=== PATIENT | female | born 1950 | race Asian ===

== ENCOUNTER 2019-12-11 19:38 | Inpatient (IN) | payer MEDICARE, MEDICAID ==
[~2019-12-11] VITALS: Ht 157.5 cm; Wt 50.3 kg
--- NOTE | 2019-12-11 20:00 | NUR ---
Dr. Mac at bedside for MSE.
--- NOTE | 2019-12-11 20:19 | NUR ---
Xray at bedside.
[2019-12-11 20:29] LABS: BASOPHILS # (AUTO) 0.1 K/uL (0.0-8.0); BASOPHILS % (AUTO) 0.9 % (0.0-2.0); EOSINOPHILS # (AUTO) 0.2 K/uL (0.0-0.7); EOSINOPHILS % (AUTO) 2.1 % (0.0-7.0); HEMATOCRIT 23.4 % (31.2-41.9); LYMPHOCYTES # (AUTO) 0.6 K/uL (20.0-40.0); LYMPHOCYTES % (AUTO) 8.5 % (20.5-51.5); MEAN CORPUSCULAR HEMOGLOBIN 31.7 uug (24.7-32.8); MEAN CORPUSCULAR HGB CONC 34 g/dL (32.3-35.6); MEAN CORPUSCULAR VOLUME 93.1 fL (75.5-95.3); MONOCYTES # (AUTO) 0.5 K/uL (2.0-10.0); MONOCYTES % (AUTO) 6.4 % (0.0-11.0); NEUTROPHILS # (AUTO) 6.2 K/uL (1.8-8.9); NEUTROPHILS % (AUTO) 82.1 % (38.5-71.5); PLATELET COUNT (AUTO) 272 K/uL (179-408); RED BLOOD CELL COUNT(AUTO) 2.51 MIL/uL (3.63-4.92); WHITE BLOOD COUNT (AUTO) 7.5 K/uL (3.8-11.8)
[2019-12-11 20:43] LABS: POTASSIUM 2.8 mmol/L (3.5-5.1)
[2019-12-11 20:44] LABS: CREATININE 12.3 mg/dL (0.6-1.3)
[2019-12-11 20:50] LABS: BILIRUBIN,DIRECT 0.1 mg/dL (0.0-0.2); BILIRUBIN,TOTAL 0.5 mg/dL (0.2-1.0)
--- NOTE | 2019-12-11 21:23 | NUR ---
Respiratory at bedside.
[2019-12-11 21:33] LABS: ABG BASE EXCESS -6.8 mmol/L; ABG PCO2 32.8 mmHg (35.0-45.0); ABG PH 7.357 (7.350-7.450); ABG PO2 100.5 mmHg (75.0-100.0); ABG SITE LEFT BRACHIAL; ABG TOTAL HEMOGLOBIN 7.6 G/dL (12.0-16.0); COHb 1.5 % (0.5-1.5); MetHb 0.7 % (0.0-1.5); O2Hb 94.6 % (94.0-97.0); VENT MODE Nasal Cannula
--- NOTE | 2019-12-11 21:49 | NUR ---
Called [facility] to page Dr. Ray Sexton.
--- NOTE | 2019-12-11 21:55 | NUR ---
Dr. Mac on panel call with Dr. Ray Sexton. Pt accepted for admission to [facility], diagnosis: CHF.
[2019-12-11 21:58] LABS: *BILIRUBIN,URIN NEGATIVE (NEGATIVE); *BLOOD, URINE 2+ (NEGATIVE); *CLARITY,URINE SLIGHTLY CLOUDY (CLEAR); *COLOR,URINE Other (YELLOW); *KETONES,URINE NEGATIVE (NEGATIVE); *UROBILINOGEN,URINE 0.2 E.U./dl (NORMAL); LEUKOCYTE ESTERASE ,URINE TRACE (NEGATIVE); NITRITE, URINE NEGATIVE (NEGATIVE); UGLUCOSE NEGATIVE (NEGATIVE)
[2019-12-11 22:14] LABS: BACTERIA,URINE MODERATE /HPF (NONE SEEN); SQUAMOUS EPITHELIAL CELL,UR FEW /HPF (NONE SEEN); YEAST,URINE NONE SEEN /HPF (NONE SEEN)
[2019-12-11 22:15] LABS: TRICHOMONAS,URINE NONE SEEN /HPF (NONE SEEN)
--- NOTE | 2019-12-11 22:20 | NUR ---
Report given to Sandy NIEVES Tele.
[2019-12-11] MEDS ORDERED: NITROGLYCERIN OINT 1 GM PACKET TP ONE ×2 (22:30→22:31)
[2019-12-11] MEDS ORDERED: FUROSEMIDE 40 MG/4 ML VIAL IV ONE (22:30)
[2019-12-11] MEDS ORDERED: FUROSEMIDE 40 MG/4 ML VIAL ONE (22:30)
[2019-12-11] MEDS ORDERED: POTASSIUM CHLORIDE 20 MEQ TAB.PRT.SR PO ONE (22:45)
[2019-12-11] MEDS ORDERED: TEMAZEPAM 15 MG CAPSULE PO PRN (22:45)
[2019-12-11] MEDS ORDERED: CEFTRIAXONE 1 G in IV DEXTROSE 5% 50 ML IV SCH (23:00)
[2019-12-11 23:30] VITALS: BP 153/59
[2019-12-11] MEDS: ACETAMINOPHEN 325 MG TABLET PO PRN (23:32)
--- NOTE | 2019-12-11 23:55 | NUR ---
Received patient from ER. Dx: CHF/PNA/UTI Patient is A/Ox2. No signs of acute distress noted. Complains of some abdominal discomfort and back pain, requesting Tylenol. Patient says she feels a little short of breath she is on 2L saturating at 96% said she does not want breathing treatment at this time. Skin assessment done, noted with small abrasion on the buttocks, picture taken and perma cath to left upper arm. Patient oriented to room and unit. Safety measures initiated. Bed is low and locked, call light within reach. Will continue to monitor.
[2019-12-11] MEDS ORDERED: CEFTRIAXONE 1 G VIAL ONE (23:56)
[2019-12-12] MEDS ORDERED: Z GUARD REMEDY PASTE 57 GM TUBE TOP PRN (03:15)
[2019-12-12] MEDS: ALBUTEROL SULFATE 2.5 MG/3 ML NEBU NEB PRN (03:37)
[2019-12-12 04:00] VITALS: BP 148/78
--- NOTE | 2019-12-12 06:11 | NUR ---
Patient slept intermittently throughout night. Patient complained of SOB, 98% on 2L NC, breathing treatment given, patient stated it helped. Vitals WNL. Rocephin given for UTI, tolerated well. Heplock on the right forearm is intact and patent. Safety measures given. Will endorse to next shift.
[2019-12-12 06:35] LABS: BASOPHILS # (AUTO) 0.1 K/uL (0.0-8.0); BASOPHILS % (AUTO) 1.4 % (0.0-2.0); EOSINOPHILS # (AUTO) 0.2 K/uL (0.0-0.7); EOSINOPHILS % (AUTO) 2.9 % (0.0-7.0); HEMATOCRIT 22.6 % (31.2-41.9); HEMOGLOBIN 7.6 g/dL (10.9-14.3); LYMPHOCYTES # (AUTO) 0.8 K/uL (20.0-40.0); LYMPHOCYTES % (AUTO) 13.6 % (20.5-51.5); MEAN CORPUSCULAR HEMOGLOBIN 31.5 uug (24.7-32.8); MEAN CORPUSCULAR HGB CONC 34 g/dL (32.3-35.6); MEAN CORPUSCULAR VOLUME 94.1 fL (75.5-95.3); MONOCYTES # (AUTO) 0.5 K/uL (2.0-10.0); MONOCYTES % (AUTO) 8.1 % (0.0-11.0); NEUTROPHILS # (AUTO) 4.5 K/uL (1.8-8.9); PLATELET COUNT (AUTO) 264 K/uL (179-408); WHITE BLOOD COUNT (AUTO) 6.1 K/uL (3.8-11.8)
[2019-12-12 06:56] LABS: BILIRUBIN,TOTAL 0.5 mg/dL (0.2-1.0); MAGNESIUM 1.9 mg/dL (1.8-2.4); POTASSIUM 3.2 mmol/L (3.5-5.1)
[2019-12-12 07:00] LABS: CREATININE 12.7 mg/dL (0.6-1.3); PHOSPHOROUS 8.8 mg/dL (2.5-4.9)
[2019-12-12 07:02] LABS: THYROID STIMULATING HORMONE 2.819 mIU/mL (0.358-3.740)
--- NOTE | 2019-12-12 07:10 | NUR ---
AWAKE ALERT AND ORIENTED X3, MOANING AND C/O GENERALIZED PAIN. REPOSITIONED FOR COMFORT. O2 AT 2L SATURATING 98%. SR ON MONITOR
--- NOTE | 2019-12-12 07:19 | NUR ---
Critical lab phos 8.8, BUN 85, Creat 12.[address] Bell and oncoming nurse.
[2019-12-12] MEDS: NITROGLYCERIN OINT 1 GM PACKET TP SCH ×2 (08:16→20:19)
[2019-12-12] MEDS: LEVOTHYROXINE SODIUM 88 MCG TABLET PO SCH (08:16)
[2019-12-12] MEDS: PANTOPRAZOLE SODIUM 40 MG TABLET.DR PO SCH ×2 (08:16→16:59)
[2019-12-12] MEDS: LABETALOL HCL 200 MG TABLET PO SCH ×2 (08:17→20:18)
--- NOTE | 2019-12-12 08:18 | NUR ---
SEEN BY DR WEBB FOR NEPHRO CONSULT AND SAID FOR HD TODAY.
[2019-12-12] MEDS: hydrALAZINE HCL 50 MG TABLET PO SCH ×3 (08:20→21:54)
[2019-12-12] MEDS: ACETAMINOPHEN 325 MG TABLET PO PRN ×3 (08:20→20:18)
[2019-12-12] MEDS ORDERED: PARICALCITOL 4 MCG PO SCH ×2 (09:00)
[2019-12-12] MEDS ORDERED: hydrALAZINE HCL 25 MG TABLET PO SCH (09:00)
[2019-12-12] MEDS ORDERED: LEVOTHYROXINE SODIUM 88 MCG TABLET PO SCH (09:00)
[2019-12-12 11:06] VITALS: BP 124/51
[2019-12-12] MEDS: DOCUSATE SODIUM 100 MG CAPSULE PO SCH ×2 (12:15→20:17)
--- NOTE | 2019-12-12 12:50 | NUR ---
STARTED HD AT BEDSIDE WILL OBSERVE
--- NOTE | 2019-12-12 14:19 | NUR ---
Patient complaining of mild pain, PRN medication given
--- NOTE | 2019-12-12 15:30 | NUR ---
HD COMPLETED PATIENT TOLERATED WELL. MEDICATED FOR ELEVATED BP DURING HD. LATEST BP 140/67
[2019-12-12 15:40] VITALS: BP_SYST 113; BP_SYST 224; BP_DIAS 105; BP_DIAS 78
[2019-12-12] MEDS: DONEPEZIL 10 MG TABLET PO SCH (20:18)
[2019-12-12] MEDS: ATORVASTATIN 10 MG TABLET PO SCH (20:18)
[2019-12-12 20:29] VITALS: BP 146/66
--- NOTE | 2019-12-12 20:46 | NUR ---
CLINICAL PHARMACY NOTE: VANCOMYCIN DOSING Request for vancomycin dosing on 69 y/o female 157.48cm 49.9kg empiric therapy HD patient Temp 98.2 BUN 85 Scr 12.7 WBC 6.1 also on Cefepime Give vancomycin 750mg ivpb x 1 will dose based on levels. Will continue to monitor
[2019-12-12] MEDS ORDERED: CEFEPIME HCL 1 G in IV DEXTROSE 5% 50 ML IV SCH ×2 (21:00→22:00)
[2019-12-12 21:41] VITALS: BP 146/64
[2019-12-12] MEDS ORDERED: VANCOMYCIN IV 750 MG in IV DEXTROSE 5% 250 ML IV ONE (22:00)
[2019-12-13] MEDS: ACETAMINOPHEN 325 MG TABLET PO PRN ×3 (04:44→18:04)
[2019-12-13 05:12] VITALS: BP 155/77
[2019-12-13] MEDS: PANTOPRAZOLE SODIUM 40 MG TABLET.DR PO SCH ×2 (06:49→16:35)
[2019-12-13] MEDS: LEVOTHYROXINE SODIUM 88 MCG TABLET PO SCH (06:49)
[2019-12-13] MEDS: hydrALAZINE HCL 50 MG TABLET PO SCH ×3 (06:51→21:08)
--- NOTE | 2019-12-13 07:30 | NUR ---
Received patient in Bed, awake and verbally responsive. No signs of distress noted. No SOB. No complain of Pain/discomfort. Kept clean and comfortable. Will continue to monitor.
[2019-12-13] MEDS: LABETALOL HCL 200 MG TABLET PO SCH ×2 (08:02→21:08)
[2019-12-13] MEDS: DOCUSATE SODIUM 100 MG CAPSULE PO SCH ×2 (08:02→21:08)
[2019-12-13] MEDS: NITROGLYCERIN OINT 1 GM PACKET TP SCH ×2 (08:03→21:09)
[2019-12-13 08:06] LABS: HEPATITIS B SURFACE AB Reactive (.); HEPATITIS B SURFACE AG Negative (Negative)
[2019-12-13 10:53] LABS: BASOPHILS # (AUTO) 0.1 K/uL (0.0-8.0); EOSINOPHILS # (AUTO) 0.2 K/uL (0.0-0.7); EOSINOPHILS % (AUTO) 2.9 % (0.0-7.0); HEMOGLOBIN 7.7 g/dL (10.9-14.3); LYMPHOCYTES # (AUTO) 0.8 K/uL (20.0-40.0); LYMPHOCYTES % (AUTO) 12.5 % (20.5-51.5); MEAN CORPUSCULAR HEMOGLOBIN 31.7 uug (24.7-32.8); MEAN CORPUSCULAR HGB CONC 33 g/dL (32.3-35.6); MEAN CORPUSCULAR VOLUME 94.9 fL (75.5-95.3); MONOCYTES # (AUTO) 0.6 K/uL (2.0-10.0); NEUTROPHILS # (AUTO) 4.6 K/uL (1.8-8.9); NEUTROPHILS % (AUTO) 74.6 % (38.5-71.5); PLATELET COUNT (AUTO) 234 K/uL (179-408); POTASSIUM 3.4 mmol/L (3.5-5.1); WHITE BLOOD COUNT (AUTO) 6.2 K/uL (3.8-11.8)
[2019-12-13 11:12] LABS: RED BLOOD CELL COUNT(AUTO) 2.42 MIL/uL (3.63-4.92)
[2019-12-13 11:15] LABS: *OCCULT BLOOD STOOL NEGATIVE (NEGATIVE)
--- NOTE | 2019-12-13 11:32 | NUR ---
CLINICAL PHARMACY NOTE: VANCOMYCIN DOSING To continue vancomycin dosing on 69 y/o female 157.48cm 49.9kg empiric therapy. On HD height 157cm weight 50kg HD patient Temp 97.4 BUN 85 (2) Scr 12.7 (2) WBC 6.1 (2) also on Cefepime Assessment/Plan Last vanco 750mg ivpb x 1 given yesterday at 2200. As no HD scheduled for today, no dose will be given. Will continue to follow HD schedule and dose per pre-HD levels when indicated. Will follow
[2019-12-13 11:53] VITALS: BP 144/93
[2019-12-13 16:00] VITALS: BP 175/76
--- NOTE | 2019-12-13 18:18 | NUR ---
Patient in bed, awake and verbally responsive with episode of Forgetfulness. No signs of distress noted. No SOB. On Oxygen at 2LPM via Nasal canula. Tylenol 650mg give x 2 for generalized Body Pain. Kept clean and comfortable. All due medications given as ordered. Will endorse to Oncoming Nurse.
--- NOTE | 2019-12-13 19:30 | NUR ---
Received patient awake and alert in bed, daughter at bedside. No signs of acute distress noted. No complaints of pain, complains of SOB. Patient is 100% on 2L NC. Heplock on the right forearm is intact and patent. Safety measures initiated. Bed is low and locked, call light within reach. Will continue to monitor.
[2019-12-13] MEDS: DONEPEZIL 10 MG TABLET PO SCH (21:08)
[2019-12-13] MEDS: ATORVASTATIN 10 MG TABLET PO SCH (21:08)
[2019-12-13 21:30] VITALS: BP 171/84
[2019-12-13] MEDS: CEFEPIME HCL 0.5 G in IV DEXTROSE 5% 50 ML IV SCH (22:33)
[2019-12-13] MEDS: MORPHINE SULFATE 2 MG/1 ML DISP.SYRIN IV PRN (22:45)
[2019-12-14] MEDS: ACETAMINOPHEN 325 MG TABLET PO PRN ×4 (00:09→22:29)
[2019-12-14] MEDS ORDERED: CLONIDINE HCL 0.2 MG TABLET PO ONE (00:30)
[2019-12-14] MEDS: ONDANSETRON 4 MG/2 ML VIAL IV PRN (00:39)
[2019-12-14 00:57] VITALS: BP 174/82
--- NOTE | 2019-12-14 00:59 | NUR ---
Took BP twice SBP >170 spoke to on-call Dr. Gupta and he ordered Catapres 0.2mg once and Catapres 0.1mg Q6H PRN for SBP>160. Will continue to monitor.
[2019-12-14 04:51] VITALS: BP 164/76
[2019-12-14 05:55] LABS: BASOPHILS # (AUTO) 0.1 K/uL (0.0-8.0); BASOPHILS % (AUTO) 1.6 % (0.0-2.0); EOSINOPHILS # (AUTO) 0.1 K/uL (0.0-0.7); EOSINOPHILS % (AUTO) 2.6 % (0.0-7.0); HEMATOCRIT 22.4 % (31.2-41.9); HEMOGLOBIN 7.5 g/dL (10.9-14.3); LYMPHOCYTES # (AUTO) 0.9 K/uL (20.0-40.0); LYMPHOCYTES % (AUTO) 15.9 % (20.5-51.5); MEAN CORPUSCULAR HEMOGLOBIN 32.2 uug (24.7-32.8); MEAN CORPUSCULAR HGB CONC 34 g/dL (32.3-35.6); MEAN CORPUSCULAR VOLUME 95.5 fL (75.5-95.3); MONOCYTES # (AUTO) 0.4 K/uL (2.0-10.0); MONOCYTES % (AUTO) 6.5 % (0.0-11.0); NEUTROPHILS # (AUTO) 4.1 K/uL (1.8-8.9); NEUTROPHILS % (AUTO) 73.4 % (38.5-71.5); PLATELET COUNT (AUTO) 218 K/uL (179-408); WHITE BLOOD COUNT (AUTO) 5.7 K/uL (3.8-11.8)
[2019-12-14 06:09] LABS: RED BLOOD CELL COUNT(AUTO) 2.34 MIL/uL (3.63-4.92)
[2019-12-14] MEDS: PANTOPRAZOLE SODIUM 40 MG TABLET.DR PO SCH ×2 (06:17→16:09)
[2019-12-14] MEDS: LEVOTHYROXINE SODIUM 88 MCG TABLET PO SCH (06:17)
[2019-12-14] MEDS: hydrALAZINE HCL 50 MG TABLET PO SCH ×3 (06:18→22:05)
[2019-12-14 06:35] LABS: POTASSIUM 3.5 mmol/L (3.5-5.1)
[2019-12-14] MEDS: NITROGLYCERIN OINT 1 GM PACKET TP SCH ×2 (08:01→20:12)
[2019-12-14] MEDS: DOCUSATE SODIUM 100 MG CAPSULE PO SCH ×2 (08:01→20:12)
[2019-12-14] MEDS: LABETALOL HCL 200 MG TABLET PO SCH ×2 (08:01→20:12)
[2019-12-14] MEDS: SEVELAMER CARBONATE 800 MG TABLET PO SCH ×2 (11:35→17:15)
[2019-12-14 11:40] VITALS: BP 140/70
--- NOTE | 2019-12-14 13:55 | NUR ---
CLINICAL PHARMACY NOTE: VANCOMYCIN DOSING To continue vancomycin dosing on 69 y/o female 157.48cm 49.9kg for HCAP. On HD height 157cm weight 50kg HD patient Temp 97.4 BUN 51 Scr 9.0 WBC 5.7 also on Cefepime Vancomycin pre-HD level today(12/14) on am labs: 11.7 Assessment/Plan Since patient is on dialysis today, will give Vancomycin 750mg IV after dialysis (scheduled at 1600 per nurse request). Will continue to dose by pre-HD random level. Will follow daily for dialysis schedule.
[2019-12-14] MEDS: MIRALAX 17 GM POWD.PACK PO PRN (15:33)
[2019-12-14 16:00] VITALS: BP 155/58
[2019-12-14] MEDS ORDERED: VANCOMYCIN IV 750 MG in IV DEXTROSE 5% 250 ML IV ONE (16:00)
[2019-12-14] MEDS: DONEPEZIL 10 MG TABLET PO SCH (20:11)
[2019-12-14] MEDS: TEMAZEPAM 7.5 MG CAPSULE PO PRN (20:11)
[2019-12-14] MEDS: ATORVASTATIN 10 MG TABLET PO SCH (20:11)
[2019-12-14 20:19] VITALS: BP 139/71
[2019-12-14] MEDS: CEFEPIME HCL 0.5 G in IV DEXTROSE 5% 50 ML IV SCH (20:42)
[2019-12-15 05:29] VITALS: BP 148/62
[2019-12-15] MEDS: LEVOTHYROXINE SODIUM 88 MCG TABLET PO SCH (06:07)
[2019-12-15] MEDS: PANTOPRAZOLE SODIUM 40 MG TABLET.DR PO SCH ×2 (06:07→18:04)
[2019-12-15] MEDS: hydrALAZINE HCL 50 MG TABLET PO SCH ×3 (06:08→21:17)
[2019-12-15 06:36] LABS: BASOPHILS # (AUTO) 0.1 K/uL (0.0-8.0); BASOPHILS % (AUTO) 1.2 % (0.0-2.0); EOSINOPHILS # (AUTO) 0.3 K/uL (0.0-0.7); LYMPHOCYTES # (AUTO) 0.9 K/uL (20.0-40.0); MEAN CORPUSCULAR HEMOGLOBIN 31.7 uug (24.7-32.8); MEAN CORPUSCULAR HGB CONC 33 g/dL (32.3-35.6); MEAN CORPUSCULAR VOLUME 96.4 fL (75.5-95.3); MONOCYTES # (AUTO) 0.6 K/uL (2.0-10.0); MONOCYTES % (AUTO) 8.2 % (0.0-11.0); PLATELET COUNT (AUTO) 222 K/uL (179-408)
[2019-12-15 06:46] LABS: EOSINOPHILS % (AUTO) 3.6 % (0.0-7.0); HEMATOCRIT 22.7 % (31.2-41.9); HEMOGLOBIN 7.5 g/dL (10.9-14.3); LYMPHOCYTES % (AUTO) 12.3 % (20.5-51.5); NEUTROPHILS # (AUTO) 5.2 K/uL (1.8-8.9); NEUTROPHILS % (AUTO) 74.7 % (38.5-71.5); WHITE BLOOD COUNT (AUTO) 6.9 K/uL (3.8-11.8)
[2019-12-15 06:47] LABS: CREATININE 5.9 mg/dL (0.6-1.3); RED BLOOD CELL COUNT(AUTO) 2.36 MIL/uL (3.63-4.92)
[2019-12-15] MEDS: ACETAMINOPHEN 325 MG TABLET PO PRN ×3 (07:58→20:27)
[2019-12-15] MEDS: DOCUSATE SODIUM 100 MG CAPSULE PO SCH ×2 (07:59→20:20)
[2019-12-15] MEDS: LABETALOL HCL 200 MG TABLET PO SCH ×2 (07:59→20:20)
[2019-12-15] MEDS: SEVELAMER CARBONATE 800 MG TABLET PO SCH ×3 (07:59→18:04)
[2019-12-15] MEDS: NITROGLYCERIN OINT 1 GM PACKET TP SCH ×2 (08:00→20:21)
--- NOTE | 2019-12-15 08:00 | NUR ---
Received pt. resting in bed alert oriented to self. Pt. is confused. Pt. on 2 L NC. Pt. has IV in R hand 20 gauge intact patent saline lock. Pt. has L UA AV shunt for dialysis. Pt. states she has headache and stomach ache and requesting tylenol. Will provide pt. with tylenol. Safety measures in place. Call light within reach. Will continue to monitor pt.
[2019-12-15] MEDS: ALBUTEROL SULFATE 2.5 MG/3 ML NEBU NEB PRN ×2 (08:14→12:19)
--- NOTE | 2019-12-15 09:49 | NUR ---
CLINICAL PHARMACY NOTE: VANCOMYCIN DOSING S: To continue vancomycin dosing on 69 y/o female dialysis patient for HCAP O: height 157cm weight 50kg Temp 98.1 BUN 28 Scr 5.9 (on HD) WBC 6.9 Vancomycin pre-HD level today(12/14) on am labs: 11.7 Assessment/Plan No HD has been scheduled for today, thus, no vanco dose shall be due today. Will continue to dose by pre-HD random level. Will follow daily for dialysis schedule.
[2019-12-15 11:44] VITALS: BP 153/61
[2019-12-15] MEDS ORDERED: BISACODYL 10 MG SUPP.RECT RC ONE (11:45)
--- NOTE | 2019-12-15 16:00 | NUR ---
Pt. is getting dialysis at moment. Will hold BP medication until after dialysis.
[2019-12-15 16:10] VITALS: BP 176/73
[2019-12-15 20:00] VITALS: BP 156/72
[2019-12-15] MEDS: CEFEPIME HCL 0.5 G in IV DEXTROSE 5% 50 ML IV SCH (20:19)
[2019-12-15] MEDS: DONEPEZIL 10 MG TABLET PO SCH (20:20)
[2019-12-15] MEDS: ATORVASTATIN 10 MG TABLET PO SCH (20:20)
[2019-12-15] MEDS: TEMAZEPAM 7.5 MG CAPSULE PO PRN (21:17)
[2019-12-16] VITALS: BP 149/65
[2019-12-16] MEDS: ACETAMINOPHEN 325 MG TABLET PO PRN ×4 (01:57→21:59)
[2019-12-16] MEDS: MORPHINE SULFATE 2 MG/1 ML DISP.SYRIN IV PRN (03:19)
[2019-12-16 05:49] VITALS: BP 163/68
[2019-12-16] MEDS: hydrALAZINE HCL 50 MG TABLET PO SCH ×3 (05:51→21:45)
[2019-12-16] MEDS: LEVOTHYROXINE SODIUM 88 MCG TABLET PO SCH (05:51)
[2019-12-16] MEDS: PANTOPRAZOLE SODIUM 40 MG TABLET.DR PO SCH ×2 (05:51→16:54)
[2019-12-16 06:31] LABS: BASOPHILS # (AUTO) 0.1 K/uL (0.0-8.0); BASOPHILS % (AUTO) 1.1 % (0.0-2.0); EOSINOPHILS # (AUTO) 0.3 K/uL (0.0-0.7); EOSINOPHILS % (AUTO) 3.6 % (0.0-7.0); HEMATOCRIT 24.4 % (31.2-41.9); HEMOGLOBIN 8.1 g/dL (10.9-14.3); LYMPHOCYTES % (AUTO) 11.7 % (20.5-51.5); MEAN CORPUSCULAR HEMOGLOBIN 32.1 uug (24.7-32.8); MEAN CORPUSCULAR HGB CONC 33 g/dL (32.3-35.6); MEAN CORPUSCULAR VOLUME 96.8 fL (75.5-95.3); MONOCYTES # (AUTO) 0.5 K/uL (2.0-10.0); MONOCYTES % (AUTO) 5.6 % (0.0-11.0); NEUTROPHILS # (AUTO) 6.4 K/uL (1.8-8.9); PLATELET COUNT (AUTO) 219 K/uL (179-408); RED BLOOD CELL COUNT(AUTO) 2.52 MIL/uL (3.63-4.92); WHITE BLOOD COUNT (AUTO) 8.2 K/uL (3.8-11.8)
[2019-12-16 06:39] LABS: CREATININE 6.9 mg/dL (0.6-1.3); POTASSIUM 3.8 mmol/L (3.5-5.1)
--- NOTE | 2019-12-16 07:38 | NUR ---
Pt rested well in between care; incontinence care done; pain addressed; safety maintained; HD output last night was 2000ml; continue to monitor; continue plan of care
--- NOTE | 2019-12-16 08:00 | NUR ---
AWAKE, ALERT BUT WITH PERIODS OF FORGETFULNESS AND CONFUSION. ASKING FOR TYLENOL EVERY 30 MIN TO 1 HR, REORIENTATION DONE. SR ON MONITOR. IV INFILTRATED. VERY HARD STICK AND WILL FOLLOW-UP ORDERS. QUESTIONABLE MIDLINE
[2019-12-16] MEDS: DOCUSATE SODIUM 100 MG CAPSULE PO SCH ×2 (09:03→20:24)
[2019-12-16] MEDS: LABETALOL HCL 200 MG TABLET PO SCH ×2 (09:04→20:24)
[2019-12-16] MEDS: SEVELAMER CARBONATE 800 MG TABLET PO SCH ×3 (09:05→16:54)
[2019-12-16] MEDS: NITROGLYCERIN OINT 1 GM PACKET TP SCH ×2 (09:06→20:24)
[2019-12-16 11:58] VITALS: BP 161/72
--- NOTE | 2019-12-16 12:00 | NUR ---
SEEN BY DR. CABRERA FOR FOLLOW-UP. SCHEDULE FOR HD TODAY.
[2019-12-16 15:57] VITALS: BP 155/70
--- NOTE | 2019-12-16 16:00 | NUR ---
HD STARTED AT BEDSIDE. CLOSELY MONITORED.
--- NOTE | 2019-12-16 19:30 | NUR ---
RECEIVED PT IN NO ACUTE DISTRESS. PT FORGETFUL NEEDS REORIENTATION. PT ASKING FOR TYLENOL. SAFETY AND COMFORT PROVIDED. WILL CONTINUE TO MONITOR.
[2019-12-16 20:00] VITALS: BP 182/74
[2019-12-16] MEDS: DONEPEZIL 10 MG TABLET PO SCH (20:23)
[2019-12-16] MEDS: ATORVASTATIN 10 MG TABLET PO SCH (20:24)
[2019-12-16] MEDS: CEFEPIME HCL 0.5 G in IV DEXTROSE 5% 50 ML IV SCH (20:30)
[2019-12-16] MEDS: CLONIDINE HCL 0.1 MG TABLET PO PRN (21:58)
[2019-12-16] MEDS: TEMAZEPAM 7.5 MG CAPSULE PO PRN (22:30)
[2019-12-17] VITALS: BP 122/59
[2019-12-17 03:52] VITALS: BP 163/78
[2019-12-17] MEDS: hydrALAZINE HCL 50 MG TABLET PO SCH ×3 (05:15→21:04)
--- NOTE | 2019-12-17 05:39 | NUR ---
PT SLEPT INTERMITTENTLY. PT IN NO ACUTE DISTRESS. IV INTACT. PRESCRIBED MEDICATION GIVEN AND PT TOLERATED IT WELL. PT GIVEN CATAPRESS MEDICATION PRN. PT TOLERATED IT WELL. SAFETY AND COMFORT PROVIDED. WILL ENDORSE TO INCOMING NURSE FOR CONTINUITY OF CARE.
[2019-12-17 06:07] LABS: CREATININE 5.5 mg/dL (0.6-1.3); PHOSPHOROUS 4.3 mg/dL (2.5-4.9); POTASSIUM 3.7 mmol/L (3.5-5.1)
[2019-12-17 06:17] LABS: BASOPHILS # (AUTO) 0.1 K/uL (0.0-8.0); BASOPHILS % (AUTO) 1.1 % (0.0-2.0); EOSINOPHILS # (AUTO) 0.3 K/uL (0.0-0.7); EOSINOPHILS % (AUTO) 4.7 % (0.0-7.0); HEMATOCRIT 23.5 % (31.2-41.9); HEMOGLOBIN 7.7 g/dL (10.9-14.3); LYMPHOCYTES # (AUTO) 0.7 K/uL (20.0-40.0); LYMPHOCYTES % (AUTO) 10.9 % (20.5-51.5); MEAN CORPUSCULAR HEMOGLOBIN 31.7 uug (24.7-32.8); MEAN CORPUSCULAR HGB CONC 33 g/dL (32.3-35.6); MEAN CORPUSCULAR VOLUME 96.3 fL (75.5-95.3); MONOCYTES # (AUTO) 0.5 K/uL (2.0-10.0); NEUTROPHILS # (AUTO) 4.7 K/uL (1.8-8.9); NEUTROPHILS % (AUTO) 75.3 % (38.5-71.5); PLATELET COUNT (AUTO) 228 K/uL (179-408); WHITE BLOOD COUNT (AUTO) 6.2 K/uL (3.8-11.8)
[2019-12-17] MEDS: LEVOTHYROXINE SODIUM 88 MCG TABLET PO SCH (06:18)
[2019-12-17] MEDS: PANTOPRAZOLE SODIUM 40 MG TABLET.DR PO SCH ×2 (06:19→17:51)
[2019-12-17] MEDS: CLONIDINE HCL 0.1 MG TABLET PO PRN (06:19)
[2019-12-17] MEDS: ACETAMINOPHEN 325 MG TABLET PO PRN ×2 (06:19→21:03)
--- NOTE | 2019-12-17 06:25 | NUR ---
PT GIVEN 2158h CATAPRES FOR 160/63 AND 0619H 168/68 BLOOD PRESSURE. PT ASYMPTOMATIC AND IN NO ACUTE DISTRESS. WILL CONTINUE TO MONITOR. CHARGE NURSE AWARE.
[2019-12-17 06:37] LABS: RED BLOOD CELL COUNT(AUTO) 2.44 MIL/uL (3.63-4.92)
--- NOTE | 2019-12-17 08:00 | NUR ---
AWAKE ALERT AND VERBALLY RESPONSIVE BUT VERY FORGETFUL, NEEDS ATTENDED. SR ON MONITOR
[2019-12-17] MEDS: DOCUSATE SODIUM 100 MG CAPSULE PO SCH ×2 (08:21→21:03)
[2019-12-17] MEDS: SEVELAMER CARBONATE 800 MG TABLET PO SCH ×3 (08:21→17:51)
[2019-12-17] MEDS: MIRALAX 17 GM POWD.PACK PO PRN (08:22)
[2019-12-17] MEDS: NITROGLYCERIN OINT 1 GM PACKET TP SCH ×2 (08:22→21:04)
[2019-12-17] MEDS: LABETALOL HCL 200 MG TABLET PO SCH ×2 (08:22→21:04)
[2019-12-17 11:28] VITALS: BP 150/50
--- NOTE | 2019-12-17 12:00 | NUR ---
SEEN BY PHYSICAL THERAPY FOR FOLLOW-UP SEE NOTES
[2019-12-17 15:16] VITALS: BP 121/99
--- NOTE | 2019-12-17 16:16 | NUR ---
CONTINUE CURRENT TX PLAN SEEN BY DR HOBSON PLAN HD IN AM
--- NOTE | 2019-12-17 19:30 | NUR ---
RECEIVED PT AWAKE, ALERT AND ORIENTEDX2. PT NEEDS REORIENTATION. PT IN NO ACUTE DISTRESS. IV INTACT. SAFETY AND COMFORT PROVIDED. WILL CONTINUE TO MONITOR.
[2019-12-17 20:00] VITALS: BP 155/74
[2019-12-17] MEDS: DONEPEZIL 10 MG TABLET PO SCH (21:03)
[2019-12-17] MEDS: ATORVASTATIN 10 MG TABLET PO SCH (21:03)
[2019-12-17] MEDS: CEFEPIME HCL 0.5 G in IV DEXTROSE 5% 50 ML IV SCH (21:05)
[2019-12-17] MEDS: TEMAZEPAM 7.5 MG CAPSULE PO PRN (22:06)
[2019-12-18] VITALS (7 sets, daily range): BP systolic 112–185; BP diastolic 49–87
[2019-12-18] MEDS: ACETAMINOPHEN 325 MG TABLET PO PRN ×3 (03:24→19:35)
[2019-12-18] MEDS: hydrALAZINE HCL 50 MG TABLET PO SCH ×3 (06:13→22:13)
[2019-12-18] MEDS: LEVOTHYROXINE SODIUM 88 MCG TABLET PO SCH (06:13)
[2019-12-18] MEDS: PANTOPRAZOLE SODIUM 40 MG TABLET.DR PO SCH ×2 (06:13→18:02)
[2019-12-18 06:24] LABS: BASOPHILS # (AUTO) 0.1 K/uL (0.0-8.0); BASOPHILS % (AUTO) 1.2 % (0.0-2.0); EOSINOPHILS # (AUTO) 0.2 K/uL (0.0-0.7); EOSINOPHILS % (AUTO) 4.1 % (0.0-7.0); HEMATOCRIT 22.2 % (31.2-41.9); LYMPHOCYTES # (AUTO) 0.9 K/uL (20.0-40.0); LYMPHOCYTES % (AUTO) 14.6 % (20.5-51.5); MEAN CORPUSCULAR HEMOGLOBIN 31.9 uug (24.7-32.8); MEAN CORPUSCULAR HGB CONC 33 g/dL (32.3-35.6); MEAN CORPUSCULAR VOLUME 96.9 fL (75.5-95.3); MONOCYTES # (AUTO) 0.5 K/uL (2.0-10.0); MONOCYTES % (AUTO) 8.2 % (0.0-11.0); NEUTROPHILS # (AUTO) 4.4 K/uL (1.8-8.9); NEUTROPHILS % (AUTO) 71.9 % (38.5-71.5); PLATELET COUNT (AUTO) 199 K/uL (179-408); WHITE BLOOD COUNT (AUTO) 6.1 K/uL (3.8-11.8)
[2019-12-18 06:36] LABS: HEMOGLOBIN 7.3 g/dL (10.9-14.3); RED BLOOD CELL COUNT(AUTO) 2.29 MIL/uL (3.63-4.92)
[2019-12-18 06:40] LABS: CREATININE 6.4 mg/dL (0.6-1.3); PHOSPHOROUS 5.1 mg/dL (2.5-4.9); POTASSIUM 3.6 mmol/L (3.5-5.1)
--- NOTE | 2019-12-18 06:46 | NUR ---
PT SLEPT INTERMITTENTLY. PRESCRIBED MEDICATION GIVEN AND PT TOLERATED IT WELL. SAFETY AND COMFORT PROVIDED. PT SCREAMING FOR TYLENOL. ALL MEDS ARE MET, WILL ENDORSE TO INCOMING NURSE FOR CONTINUITY OF CARE.
[2019-12-18 08:09] LABS: HEPATITIS A AB, TOTAL Negative (Negative); HEPATITIS B SURFACE AB Reactive (.); HEPATITIS B SURFACE AG Negative (Negative)
[2019-12-18] MEDS: SEVELAMER CARBONATE 800 MG TABLET PO SCH ×3 (08:21→18:02)
[2019-12-18] MEDS: DOCUSATE SODIUM 100 MG CAPSULE PO SCH ×2 (08:21→21:26)
[2019-12-18] MEDS: NITROGLYCERIN OINT 1 GM PACKET TP SCH ×2 (08:23→21:27)
[2019-12-18] MEDS: LABETALOL HCL 200 MG TABLET PO SCH ×2 (08:23→21:27)
[2019-12-18] MEDS: CLONIDINE HCL 0.1 MG TABLET PO PRN (08:25)
[2019-12-18] MEDS: ALBUTEROL SULFATE 2.5 MG/3 ML NEBU NEB PRN (08:39)
--- NOTE | 2019-12-18 08:39 | NUR ---
Received pt in bed, A/OX1-2, forgetful and agitated. Noted with elevated BP: 161/79, All due AM meds given with clonidine. Called RT for BTX for c/o SOB, pt. on 2 LPM via NC with SpO2 of 100%. On monitor: NSR. AVF +thrill and Bruit. LUISA midline patent and intact. No new skin condition, skin care rendered. Safety measures in place. Call light and all frequently used items within pt. reach.
--- NOTE | 2019-12-18 13:03 | NUR ---
TYLENOL PRN GIVEN. PT'S PAIN LEVEL 4. GENERALIZED.
[2019-12-18] MEDS: MORPHINE SULFATE 2 MG/1 ML DISP.SYRIN IV PRN ×2 (13:33→21:29)
--- NOTE | 2019-12-18 18:56 | NUR ---
EOS: All due medications given as ordered. Skin care rendered. Relayed lab result and CXR result to Dr. Wild Jacobsen. Notified attending of pt. restlessness and agitation, NNO. Pt. received dialysis treatment today, no output per dialysis nurse. No bleeding on KATRIN AVF site post dialysis. Kept pt. clean and dry. Safety measures in place. Call light and all frequently used items within pt. reach. Will endorse to oncoming shift accordingly.
--- NOTE | 2019-12-18 20:00 | NUR ---
PATIENT RECEIVED INTO CARE, SITTING UP IN BED, ALERT/ORIENTED X3 WITH COMPLAINTS OF HEADACHE/PAIN AND REQUESTING TYLENOL. NURSE EXPLAINED TYLENOL GIVEN AT 1936H AND CAN GIVE AGAIN AT 0136H. ALL SAFETY AND FALL PRECAUTION MEASURES ARE IN PLACE. CALL LIGHT AND PERSONAL ITEMS ARE WITHIN REACH AT ALL TIMES. WILL CONTINUE TO MONITOR AND ASSESS.
[2019-12-18] MEDS: ATORVASTATIN 10 MG TABLET PO SCH (21:26)
[2019-12-18] MEDS: CEFEPIME HCL 0.5 G in IV DEXTROSE 5% 50 ML IV SCH (21:26)
[2019-12-18] MEDS: DONEPEZIL 10 MG TABLET PO SCH (21:27)
[2019-12-18] MEDS: ONDANSETRON 4 MG/2 ML VIAL IV PRN (21:33)
--- NOTE | 2019-12-18 23:31 | NUR ---
BLOOD TRANSFUSION STARTED. PATIENT AFEBRILE. VS: T 98.3 HR 73 RR V20 BP 166/63 WILL CONTINUE TO MONITOR AND ASSESS.
--- NOTE | 2019-12-18 23:39 | NUR ---
VS AT 15 MIN: AFEBRILE 98.2 BP 185/80 HR 68 RR 20. SLOWED TRANSFUSION RATE FROM 110mL/HR TO 75mL/HR. WILL CONTINUE TO MONITOR AND ASSESS IN 15 MINUTES
[2019-12-19] VITALS (12 sets, daily range): BP systolic 139–180; BP diastolic 45–84
--- NOTE | 2019-12-19 00:02 | NUR ---
BLOOD TRANSFUSION VS T 98.1 BP 161/45 HR 75 RR 20. INCREASED FLOW RATE TO 90mL/HR. WILL CONTINUE TO MONITOR AND ASSESS IN 15 MIN.
--- NOTE | 2019-12-19 00:15 | NUR ---
BLOOD TRANSFUSION VS: T 98.1 BP 171/84 HR 74 RR 18. SLOWED TRANSFUSION BACK TO 75mL/HR DUE TO INCREASED BP. WILL CONTINUE TO MONITOR AND ASSESS IN 15 MIN.
--- NOTE | 2019-12-19 00:34 | NUR ---
BLOOD TRANSFUSION VS: T 98.2 BP 139/54 HR 75 RR 19; Addendum: 12/19/19 at 0035 by AMY TORRE RN INCREASED RATE TO 90mL/hr. WILL CONTINUE TO MONITOR AND ASSESS IN 15 MINUTES.
--- NOTE | 2019-12-19 00:45 | NUR ---
BLOOD TRANSFUSION VS: T 98.2 BP 171/76 HR 76 R 20. SLOWED TRANSFUSION TO 75mL/HR. WILL CONTINUE TO MONITOR AND ASSESS IN 15 MINUTES.
--- NOTE | 2019-12-19 01:00 | NUR ---
BLOOD TRANSFUSION VS: T 98.2 BP 178/56 HR 74 RR 19 AT 75mL/HR. PROVIDED PATIENT WITH PRESCRIBED CATAPRES 0.1mg. WILL CONTINUE TO MONITOR AND ASSESS IN 15 MIN.
[2019-12-19] MEDS: CLONIDINE HCL 0.1 MG TABLET PO PRN ×2 (01:06→16:07)
[2019-12-19] MEDS: ACETAMINOPHEN 325 MG TABLET PO PRN ×3 (01:11→20:47)
--- NOTE | 2019-12-19 01:44 | NUR ---
RECHECK OF PATIENT'S BP FOLLOWING ADMINISTRATION OF PO 0.1mg CATAPRES IS BP 172/82 HR 73. WILL NOTIFY HARINDER BUSH FOR FURTHER INSTRUCTIONS.
--- NOTE | 2019-12-19 01:45 | NUR ---
NOTIFIED [employer] SALES SUPERVISOR KIMBERLI OF ELEVATED BP DESPITE GIVING PRN CATAPRES 0.1MG. [employer] SALES SUPERVISOR ORDER PRN HYDRALAZINE 25MG FOR SBP >160.
[2019-12-19] MEDS: hydrALAZINE HCL 25 MG TABLET PO PRN ×3 (02:25→18:05)
--- NOTE | 2019-12-19 02:46 | NUR ---
BLOOD TRANSFUSION COMPLETE. FINAL VS T 98.2 BP 161/68 HR 62 RR 20. NO ADVERSE SIDE EFFECTS VERBALIZED BY PATIENT OR NOTED/OBSERVED BY NURSE. WILL CONTINUE TO MONITOR AND ASSESS.
[2019-12-19 05:19] LABS: BASOPHILS # (AUTO) 0.1 K/uL (0.0-8.0); BASOPHILS % (AUTO) 1.2 % (0.0-2.0); EOSINOPHILS # (AUTO) 0.2 K/uL (0.0-0.7); EOSINOPHILS % (AUTO) 3.2 % (0.0-7.0); HEMATOCRIT 26.4 % (31.2-41.9); HEMOGLOBIN 8.8 g/dL (10.9-14.3); LYMPHOCYTES # (AUTO) 0.7 K/uL (20.0-40.0); LYMPHOCYTES % (AUTO) 11.5 % (20.5-51.5); MEAN CORPUSCULAR HEMOGLOBIN 31.3 uug (24.7-32.8); MEAN CORPUSCULAR HGB CONC 33 g/dL (32.3-35.6); MEAN CORPUSCULAR VOLUME 94.3 fL (75.5-95.3); MONOCYTES # (AUTO) 0.6 K/uL (2.0-10.0); NEUTROPHILS # (AUTO) 4.9 K/uL (1.8-8.9); NEUTROPHILS % (AUTO) 75.1 % (38.5-71.5); PLATELET COUNT (AUTO) 184 K/uL (179-408); WHITE BLOOD COUNT (AUTO) 6.5 K/uL (3.8-11.8)
[2019-12-19 05:30] LABS: CREATININE 4.9 mg/dL (0.6-1.3); PHOSPHOROUS 4.5 mg/dL (2.5-4.9); POTASSIUM 3.8 mmol/L (3.5-5.1)
--- NOTE | 2019-12-19 06:00 | NUR ---
PATIENT SLEPT INTERMITTENTLY THROUGHOUT NIGHT WITH COMPLAINTS OF PAIN ADDRESSED WITH REQUESTED TYLENOL, PRESCRIBED. BLOOD TRANSFUSION BEGAN 2330 AND COMPLETED AT 0245, AND WAS TOLERATED WELL BY PATIENT, WITH NO ADVERSE SIDE EFFECTS VERBALIZED BY PATIENT OR NOTED/OBSERVED BY NURSE. INCIDENTS OF INCREASED BP WERE ADDRESSED WITH PRESCRIBED SCHEDULED AND PRN MEDICATIONS, WITH NO ADVERSE SIDE EFFECTS VERBALIZED BY PATIENT OR NOTED/OBSERVED BY NURSE. ALL NURSING NEEDS WERE MET PROMPTLY AND PATIENT IS WARM, DRY, AND COMFORTABLE. ALL SAFETY AND FALL PRECAUTION MEASURES REMAIN IN PLACE. CALL LIGHT AND PERSONAL ITEMS REMAIN WITHIN REACH AT ALL TIMES.
[2019-12-19] MEDS: LEVOTHYROXINE SODIUM 88 MCG TABLET PO SCH (06:05)
[2019-12-19] MEDS: hydrALAZINE HCL 50 MG TABLET PO SCH ×3 (06:05→22:06)
[2019-12-19] MEDS: PANTOPRAZOLE SODIUM 40 MG TABLET.DR PO SCH ×2 (06:06→17:17)
[2019-12-19] MEDS: LABETALOL HCL 200 MG TABLET PO SCH ×2 (08:14→20:47)
[2019-12-19] MEDS: SEVELAMER CARBONATE 800 MG TABLET PO SCH ×2 (08:14→12:02)
[2019-12-19] MEDS: DOCUSATE SODIUM 100 MG CAPSULE PO SCH ×2 (08:14→20:47)
[2019-12-19] MEDS: NITROGLYCERIN OINT 1 GM PACKET TP SCH ×2 (08:15→20:48)
[2019-12-19] MEDS: ALBUTEROL SULFATE 2.5 MG/3 ML NEBU NEB PRN (08:29)
--- NOTE | 2019-12-19 09:45 | NUR ---
Patient awake, alert, not in acute distress. Due medications administered and tolerated well. Assisted with her needs. Call light and frequently used items placed within reach. Safety measures maintained. Patient complained of headache and given PRN tylenol as ordered.
[2019-12-19 12:06] LABS: HEPATITIS Be ANTIGEN Negative (Negative)
[2019-12-19] MEDS: SEVELAMER CARBONATE 800 MG POWD.PACK PO SCH ×2 (12:30→17:20)
--- NOTE | 2019-12-19 16:08 | NUR ---
Noted BP 180/75, HR 72, given PRN clonidine as ordered. Will continue to monitor patient.
--- NOTE | 2019-12-19 20:00 | NUR ---
Patient received into care, laying in bed, sleeping comfortably. Patient has no signs/symptoms of acute distress or discomfort noted/observed by nurse. Oxygen is running via NC @ 3L/min. All safety and fall precaution measures are in place. Call light and personal items are within reach. Will continue to monitor and assess.
[2019-12-19] MEDS: CEFEPIME HCL 0.5 G in IV DEXTROSE 5% 50 ML IV SCH (20:46)
[2019-12-19] MEDS: DONEPEZIL 10 MG TABLET PO SCH (20:47)
[2019-12-19] MEDS: ATORVASTATIN 10 MG TABLET PO SCH (20:47)
--- NOTE | 2019-12-19 21:50 | NUR ---
PATIENT'S DAUGHTER CALLED WITH CONCERNS ABOUT HER MOTHER RECEIVING DIALYSIS AT NEW FACILITY BECAUSE HER CURRENT DIALYSIS CENTER IS OVER 18 MILES FROM WHERE HER MOM IS BEING TRANSFERRED. NURSE ASSURED DAUGHTER THAT BOX S[employer]TER WOULD HAVE TAKEN STEPS WITH NO FACILITY TO ENSURE THAT HER MOM WILL BE ABLE TO HAVE ACCESS TO DIALYSIS WHILE IN THEIR STAY AND IF SHE HAD FURTHER QUESTIONS, SHE COULD CONTACT THAT FACILITY TO SPEAK WITH [facility]TER ONCE HER MOM HAS BEEN ADMITTED THERE.
--- NOTE | 2019-12-19 22:06 | NUR ---
BAR CODE WOULD NOT SCAN ON SCHEDULED 0h JOSH, BARCODE ENTERED MANUALLY.
[2019-12-20 04:05] VITALS: BP 180/58
[2019-12-20] MEDS: hydrALAZINE HCL 50 MG TABLET PO SCH ×3 (05:45→22:52)
[2019-12-20] MEDS: ACETAMINOPHEN 325 MG TABLET PO PRN ×4 (05:46→23:00)
--- NOTE | 2019-12-20 06:00 | NUR ---
PATIENT SLEPT INTERMITTENTLY THROUGHOUT NIGHT WITH COMPLAINTS OF PAIN ADDRESSED WITH PRESCRIBED TYLENOL. PRESCRIBED IV MEDICATION PROVIDED ORDERED AND TOLERATED WELL BY PATIENT, WITH NO ADVERSE SIDE EFFECTS VERBALIZED BY PATIENT OR NOTED/OBSERVED BY NURSE. ALL PRESCRIBED ORAL MEDICATIONS PROVIDED ORDERED AND TOLERATED WELL BY PATIENT WITH NO ADVERSE SIDE EFFECTS VERBALIZED BY PATIENT OR NOTED/OBSERVED BY NURSE. ALL PATIENT NEEDS MET PROMPTLY AND PATIENT IS WARM, DRY, AND COMFORTABLE. CALL LIGHT AND PERSONAL ITEMS REMAIN WITHIN REACH. SAFETY AND FALL PRECAUTION MEASURES REMAIN IN PLACE.
[2019-12-20] MEDS: LEVOTHYROXINE SODIUM 88 MCG TABLET PO SCH (06:07)
[2019-12-20] MEDS: PANTOPRAZOLE SODIUM 40 MG TABLET.DR PO SCH ×2 (06:07→16:59)
--- NOTE | 2019-12-20 07:00 | NUR ---
RECEIVED PATIENT ON HD AT BEDSIDE, TOLERATING FAIRLY.
--- NOTE | 2019-12-20 09:00 | NUR ---
HD COMPLETED AND TOOK 1L OF FLUID. NO SIGNS AND SYMPTOMS OF DISTRESS, NO CHEST PAIN. CONTINUE WITH TYLENOL FOR PAIN MGT.
[2019-12-20] MEDS: SEVELAMER CARBONATE 800 MG POWD.PACK PO SCH ×3 (09:45→17:00)
[2019-12-20] MEDS: LABETALOL HCL 200 MG TABLET PO SCH ×2 (09:45→20:45)
[2019-12-20] MEDS: NITROGLYCERIN OINT 1 GM PACKET TP SCH ×2 (09:45→20:45)
[2019-12-20] MEDS: DOCUSATE SODIUM 100 MG CAPSULE PO SCH ×2 (09:45→20:45)
[2019-12-20 12:19] VITALS: BP 116/65
[2019-12-20 15:48] VITALS: BP 133/71
--- NOTE | 2019-12-20 17:32 | NUR ---
AWAITING PLACEMENT. SEE [employer]DER'S NOTES.
[2019-12-20] MEDS: DONEPEZIL 10 MG TABLET PO SCH (20:45)
[2019-12-20] MEDS: ATORVASTATIN 10 MG TABLET PO SCH (20:45)
[2019-12-20] MEDS: CEFEPIME HCL 0.5 G in IV DEXTROSE 5% 50 ML IV SCH (20:46)
[2019-12-20 20:49] VITALS: BP 186/81
[2019-12-20] MEDS: TEMAZEPAM 7.5 MG CAPSULE PO PRN (22:52)
--- NOTE | 2019-12-21 05:33 | NUR ---
PATIENT SLEPT INTERMITTENTLY. NO SIGNS OF ACUTE DISTRESS AND V/S STABLE THROUGHOUT SHIFT. PATIENT ASKING FOR TYLENOL THROUGHOUT THE NIGHT FOR HEADACHE AND TEMAZEPAM FOR INSOMNIA. SAFETY AND COMFORT MEASURES PROVIDED. BED IN LOWEST POSITION, SIDE RAILS UP X2, AND BED ALARM ON. ALL NEEDS MED AND MEDICATIONS ADMINISTERED. WILL CONTINUE TO MONITOR AND ENDORSE CARE TO MORNING NURSE.
[2019-12-21] MEDS: hydrALAZINE HCL 50 MG TABLET PO SCH ×3 (06:30→22:51)
[2019-12-21] MEDS: LEVOTHYROXINE SODIUM 88 MCG TABLET PO SCH (06:30)
[2019-12-21] MEDS: PANTOPRAZOLE SODIUM 40 MG TABLET.DR PO SCH ×2 (06:30→17:03)
[2019-12-21 06:51] VITALS: BP 164/75
[2019-12-21] MEDS: DOCUSATE SODIUM 100 MG CAPSULE PO SCH ×2 (09:06→20:26)
[2019-12-21] MEDS: NITROGLYCERIN OINT 1 GM PACKET TP SCH ×2 (09:11→20:26)
[2019-12-21] MEDS: LABETALOL HCL 200 MG TABLET PO SCH ×2 (09:11→20:27)
[2019-12-21] MEDS: ACETAMINOPHEN 325 MG TABLET PO PRN ×3 (09:12→23:04)
[2019-12-21] MEDS: ALBUTEROL SULFATE 2.5 MG/3 ML NEBU NEB PRN ×2 (09:35→20:43)
[2019-12-21] MEDS: SEVELAMER CARBONATE 800 MG POWD.PACK PO SCH ×3 (10:33→17:00)
[2019-12-21] MEDS: diphenhydrAMINE 25 MG CAP PO PRN ×2 (10:33→17:03)
[2019-12-21 11:10] VITALS: BP 108/68
[2019-12-21] MEDS: ALPRAZOLAM 0.25 MG TABLET PO PRN (14:05)
--- NOTE | 2019-12-21 14:39 | NUR ---
PATIENT AOx2, NO SIGNS OF ACUTE DISTRESS AND V/S STABLE SAFETY AND COMFORT MEASURES PROVIDED. BED IN LOWEST POSITION, SIDE RAILS UP X2, AND BED ALARM ON. WILL CONTINUE TO MONITOR AND ENDORSE CARE TO MORNING NURSE.
--- NOTE | 2019-12-21 14:40 | NUR ---
PATIENT WAS AGITATED, ASKING FOR TYLENOL Q 30 MIN,M FORGETFUL, SCREAMING AT STUFF AT TIMES. WAS TRANSFERRED TO ROOM 327
[2019-12-21 15:30] VITALS: BP 147/81
--- NOTE | 2019-12-21 19:05 | NUR ---
PATIENT AOx2, NO SIGNS OF ACUTE DISTRESS AND V/S STABLE SAFETY AND COMFORT MEASURES PROVIDED. BED IN LOWEST POSITION, SIDE RAILS UP X2, AND BED ALARM ON.
[2019-12-21 19:50] VITALS: BP 161/69
[2019-12-21] MEDS: DONEPEZIL 10 MG TABLET PO SCH (20:26)
[2019-12-21] MEDS: ATORVASTATIN 10 MG TABLET PO SCH (20:26)
[2019-12-21] MEDS: TEMAZEPAM 7.5 MG CAPSULE PO PRN (23:04)
[2019-12-22 05:22] VITALS: BP 174/72
--- NOTE | 2019-12-22 05:32 | NUR ---
patient slept intermittently. no s/s of acute distress and v/s stable at this time. safety and comfort measures provided and all needs met. will continue to monitor and endorse to morning nurse.
[2019-12-22] MEDS: PANTOPRAZOLE SODIUM 40 MG TABLET.DR PO SCH ×2 (06:07→16:31)
[2019-12-22] MEDS: LEVOTHYROXINE SODIUM 88 MCG TABLET PO SCH (06:07)
[2019-12-22] MEDS: hydrALAZINE HCL 50 MG TABLET PO SCH ×3 (06:08→22:09)
[2019-12-22 06:47] LABS: CREATININE 5.9 mg/dL (0.6-1.3); MAGNESIUM 1.9 mg/dL (1.8-2.4); PHOSPHOROUS 3.8 mg/dL (2.5-4.9); POTASSIUM 4.1 mmol/L (3.5-5.1)
[2019-12-22 06:49] LABS: BASOPHILS # (AUTO) 0.1 K/uL (0.0-8.0); BASOPHILS % (AUTO) 1.2 % (0.0-2.0); EOSINOPHILS # (AUTO) 0.2 K/uL (0.0-0.7); EOSINOPHILS % (AUTO) 2.9 % (0.0-7.0); HEMATOCRIT 26.1 % (31.2-41.9); HEMOGLOBIN 8.7 g/dL (10.9-14.3); LYMPHOCYTES # (AUTO) 1.2 K/uL (20.0-40.0); LYMPHOCYTES % (AUTO) 18.5 % (20.5-51.5); MEAN CORPUSCULAR HEMOGLOBIN 31.5 uug (24.7-32.8); MEAN CORPUSCULAR HGB CONC 33 g/dL (32.3-35.6); MEAN CORPUSCULAR VOLUME 94.5 fL (75.5-95.3); MONOCYTES # (AUTO) 0.6 K/uL (2.0-10.0); MONOCYTES % (AUTO) 9.3 % (0.0-11.0); NEUTROPHILS # (AUTO) 4.4 K/uL (1.8-8.9); NEUTROPHILS % (AUTO) 68.1 % (38.5-71.5); PLATELET COUNT (AUTO) 171 K/uL (179-408); RED BLOOD CELL COUNT(AUTO) 2.76 MIL/uL (3.63-4.92); WHITE BLOOD COUNT (AUTO) 6.5 K/uL (3.8-11.8)
--- NOTE | 2019-12-22 07:45 | NUR ---
Received patient asleep. No s/s of acute distress noted, no c/o pain at this time. Safety and comfort provided. will continue to monitor.
[2019-12-22] MEDS: SEVELAMER CARBONATE 800 MG POWD.PACK PO SCH ×3 (08:53→16:31)
[2019-12-22] MEDS: LABETALOL HCL 200 MG TABLET PO SCH ×2 (10:02→20:22)
[2019-12-22] MEDS: DOCUSATE SODIUM 100 MG CAPSULE PO SCH ×2 (10:03→20:22)
[2019-12-22] MEDS: NITROGLYCERIN OINT 1 GM PACKET TP SCH ×2 (10:03→20:22)
[2019-12-22] MEDS: ACETAMINOPHEN 325 MG TABLET PO PRN ×2 (11:14→20:21)
[2019-12-22] MEDS: diphenhydrAMINE 25 MG CAP PO PRN (11:24)
[2019-12-22 12:07] VITALS: BP 141/87
[2019-12-22] MEDS ORDERED: TUBERCULIN,PURIF.PROT.DERIV. 5 TU/0.1 ML TEST ID ONE (14:30)
[2019-12-22 15:38] VITALS: BP 167/77
--- NOTE | 2019-12-22 19:30 | NUR ---
RECEIVED PT AWAKE, ALERT AND ORIENTEDX2. PT NEEDS REORIENTATION. PT IN NO ACUTE DISTRESS. IV INTACT. SAFETY AND COMFORT PROVIDED. ALL NEEDS ARE MET. WILL CONTINUE TO MONITOR.
[2019-12-22 20:20] VITALS: BP 179/80
[2019-12-22] MEDS: DONEPEZIL 10 MG TABLET PO SCH (20:21)
[2019-12-22] MEDS: ATORVASTATIN 10 MG TABLET PO SCH (20:21)
[2019-12-22 22:30] VITALS: BP 138/63
[2019-12-22] MEDS: TEMAZEPAM 7.5 MG CAPSULE PO PRN (22:33)
[2019-12-23] MEDS: ACETAMINOPHEN 325 MG TABLET PO PRN ×4 (02:53→23:24)
[2019-12-23] MEDS: diphenhydrAMINE 25 MG CAP PO PRN ×3 (03:36→18:41)
[2019-12-23] MEDS: ALPRAZOLAM 0.25 MG TABLET PO PRN (04:33)
[2019-12-23 04:35] VITALS: BP 145/78
--- NOTE | 2019-12-23 05:59 | NUR ---
PT SLEPT INTERMITTENTLY. PT IN NO ACUTE DISTRESS. IV INTACT. PT FORGETFUL NEEDS ORIENTATION. PRESCRIBED MEDICATION GIVEN AND PT TOLERATED IT WELL. PT COMPLAINING OF ITCHINESS. BENADRYL GIVEN. PT STILL ITCHY. GAVE SPONGEBATH. ALL NEEDS ARE MET. SAFETY AND COMFORT PROVIDED. WILL ENDORSE TO INCOMING NURSE FOR CONTINUITY OF CARE.
[2019-12-23] MEDS: PANTOPRAZOLE SODIUM 40 MG TABLET.DR PO SCH ×2 (06:06→17:31)
[2019-12-23] MEDS: hydrALAZINE HCL 50 MG TABLET PO SCH ×3 (06:06→21:13)
[2019-12-23] MEDS: LEVOTHYROXINE SODIUM 88 MCG TABLET PO SCH (06:06)
--- NOTE | 2019-12-23 06:07 | NUR ---
PT HAD 5 BOWEL MOVEMENT WITH LOOSE STOOL. STARTED THE C-DIFF PROTOCOL PAPER. PT HAD LAXATIVE .
--- NOTE | 2019-12-23 06:08 | NUR ---
AFTER GIVING LAXATIVE. PT HAD 5 STOOLS THROUGHOUT THE SHIFT. PT STOOL IS SMALL AMOUNT AND LIQUID. DID C. DIFF TEST REQUISITION. PT OIN NO ACUTE DISTRESS. PT ICHY. PRESCRIBED MEDICATION GIVEN AND PT TOLERATED IT WELL. SAFETY AND COMFORT PROVIDED. WILL ENDORSE TO INCOMING NURSE FOR CONTINUITY OF CARE.
[2019-12-23 07:27] LABS: BASOPHILS # (AUTO) 0.1 K/uL (0.0-8.0); BASOPHILS % (AUTO) 1.3 % (0.0-2.0); EOSINOPHILS # (AUTO) 0.2 K/uL (0.0-0.7); EOSINOPHILS % (AUTO) 3.5 % (0.0-7.0); HEMATOCRIT 27.3 % (31.2-41.9); HEMOGLOBIN 9.2 g/dL (10.9-14.3); LYMPHOCYTES # (AUTO) 1.1 K/uL (20.0-40.0); LYMPHOCYTES % (AUTO) 16.5 % (20.5-51.5); MEAN CORPUSCULAR HEMOGLOBIN 31.8 uug (24.7-32.8); MEAN CORPUSCULAR HGB CONC 34 g/dL (32.3-35.6); MEAN CORPUSCULAR VOLUME 94.8 fL (75.5-95.3); MONOCYTES # (AUTO) 0.6 K/uL (2.0-10.0); MONOCYTES % (AUTO) 8.7 % (0.0-11.0); NEUTROPHILS # (AUTO) 4.7 K/uL (1.8-8.9); PLATELET COUNT (AUTO) 176 K/uL (179-408); RED BLOOD CELL COUNT(AUTO) 2.88 MIL/uL (3.63-4.92); WHITE BLOOD COUNT (AUTO) 6.8 K/uL (3.8-11.8)
[2019-12-23 07:34] LABS: CREATININE 7.3 mg/dL (0.6-1.3); POTASSIUM 3.9 mmol/L (3.5-5.1)
--- NOTE | 2019-12-23 08:00 | NUR ---
RECEIVED PT AWAKE, ALERT AND ORIENTEDX2. PT NEEDS REORIENTATION. PT IN NO ACUTE DISTRESS OR SOB. IV INTACT. SAFETY AND COMFORT PROVIDED. ALL NEEDS ARE MET. WILL CONTINUE TO MONITOR PT FOR SAFETY AND COMFORT.
[2019-12-23] MEDS: DOCUSATE SODIUM 100 MG CAPSULE PO SCH ×2 (09:00→21:12)
[2019-12-23] MEDS: SEVELAMER CARBONATE 800 MG POWD.PACK PO SCH ×3 (09:25→17:31)
[2019-12-23] MEDS: NITROGLYCERIN OINT 1 GM PACKET TP SCH ×2 (09:32→21:14)
[2019-12-23] MEDS: LABETALOL HCL 200 MG TABLET PO SCH ×2 (09:32→21:12)
[2019-12-23 11:23] VITALS: BP 140/48
--- NOTE | 2019-12-23 12:00 | NUR ---
DIALYSIS BEGAN DIALYSIS AT THIS TIME.
--- NOTE | 2019-12-23 15:15 | NUR ---
2.5 LITERS REMOVED VIA DIALYSIS
[2019-12-23 15:25] VITALS: BP 183/95
[2019-12-23 16:20] VITALS: BP 168/89
[2019-12-23 18:00] VITALS: BP 148/64
--- NOTE | 2019-12-23 18:03 | NUR ---
PT RESTING IN BED. PT COMPLAINED OF ITCHING. BENADRYL GIVEN. PT ALERT AND ORIENTED X3. NO ACUTE DISTRESS OR SOB NOTED. BP MEDS GIVEN TIME AFTER DUE PT WAS ON DIALYSIS. PT IS MEDICATION AND DIET COMPLIANT. IV FLUSHED AND PATENT. WILL GIVE REPORT ACCORDINGLY.
--- NOTE | 2019-12-23 19:40 | NUR ---
RECEIVED PATIENT AWAKE IN BED. AO X 2. PATIENT COMPLAINS OF ITCHING. WILL CONTACT DOCTOR FOR MEDICATION. NO SIGNS OF RESPIRATORY DISTRESS. IMMEDIATE NEEDS ATTENDED. IV IN RIGHT FOREARM 22G FLUSHING, PATENT, AND INTACT. WILL CONTINUE TO MONITOR ACCORDINGLY.
--- NOTE | 2019-12-23 20:15 | NUR ---
CONTACTED DR. CANDELARIA REGARDING PATIENT'S SEVERE ITCHING. ORDER RECEIVED FOR BENADRYL 50MG IV Q6H PRN.
[2019-12-23 20:30] VITALS: BP 173/79
[2019-12-23] MEDS: ATORVASTATIN 10 MG TABLET PO SCH (21:09)
[2019-12-23] MEDS: DONEPEZIL 10 MG TABLET PO SCH (21:12)
[2019-12-23] MEDS ORDERED: diphenhydrAMINE 50 MG/1 ML VIAL IV PRN (21:15)
[2019-12-23] MEDS: TEMAZEPAM 7.5 MG CAPSULE PO PRN (23:54)
[2019-12-23] MEDS: CLONIDINE HCL 0.1 MG TABLET PO PRN (23:55)
[2019-12-24 02:00] VITALS: BP 158/81
[2019-12-24 04:00] VITALS: BP 199/89
[2019-12-24] MEDS: hydrALAZINE HCL 50 MG TABLET PO SCH ×2 (05:04→14:25)
[2019-12-24] MEDS: ACETAMINOPHEN 325 MG TABLET PO PRN ×2 (05:17→12:38)
--- NOTE | 2019-12-24 05:56 | NUR ---
PATIENT SLEPT INTERMITTENTLY THROUGHOUT THE NIGHT. TOLERATED MEDICATIONS. TREATED SEVERE PRURITIS EPISODE WITH BENADRYL. INCREASED BLOOD PRESSURE MANAGED WITH ROUTINE AND PRN MEDICATIONS. NO ACUTE CHANGE IN PATIENT CONDITION. WILL ENDORSE TO ONCOMING SHIFT.
[2019-12-24] MEDS: LEVOTHYROXINE SODIUM 88 MCG TABLET PO SCH (06:03)
[2019-12-24] MEDS: PANTOPRAZOLE SODIUM 40 MG TABLET.DR PO SCH (06:03)
[2019-12-24] MEDS: CLONIDINE HCL 0.1 MG TABLET PO PRN (06:56)
--- NOTE | 2019-12-24 07:40 | NUR ---
RECEIVED PATIENT IN BED, ASLEEP, EASY TO AWAKE, AOX2, FORGETFUL. DENIES PAIN OR SOB AT THIS TIME. RIGHT FA IV INTACT AND HL. LEFT UPPER ARM FISTULA INTACT. SAFETY AND FALL PREVENTION IN PLACE. CALL LIGHT IN REACH, BED LOW AND LOCKED. WILL CONTINUE TO MONITOR.
[2019-12-24] MEDS: SEVELAMER CARBONATE 800 MG POWD.PACK PO SCH ×2 (08:00→12:34)
[2019-12-24] MEDS: DOCUSATE SODIUM 100 MG CAPSULE PO SCH (09:33)
[2019-12-24] MEDS: NITROGLYCERIN OINT 1 GM PACKET TP SCH (09:38)
[2019-12-24] MEDS: LABETALOL HCL 200 MG TABLET PO SCH (09:38)
[2019-12-24 12:06] VITALS: BP 137/61
[2019-12-24 14:25] VITALS: BP 145/65
--- NOTE | 2019-12-24 16:20 | NUR ---
PATIENT DISCHARGED TO [facility]. PATIENT DISCHARGE INSTRUCTIONS GONE OVER WITH PATIENT, BELONGINGS LIST GONE OVER AND PATIENT LEFT WITH ALL BELONGINGS. PATIENT LEFT IN FAIR CONDITION. LAST BP 145/65 HR 79. PATIENT LEFT VIA AMBULANCE WITH O2 AT 2L SATURATING AT 95%. RIGHT FA IV TAKEN OUT AND ARMBAND TAKEN OFF.
== END 2019-12-24 16:20 | DRG 280 ==
LOC: ER 19:41 → TELE3 22:24 → MEDSURG3 12-19 11:06
PROVIDERS: ADMIT Internal Medicine; ATTEND Nurse Practitioner Acute Care
PROC: 5A1D70Z Performance of Urinary Filtration, Intermittent, Less than 6 Hours Per Day (ICD-10-PCS; principal; 2019-12-12)
PROC: 05H933Z Insertion of Infusion Device into Right Brachial Vein, Percutaneous Approach (ICD-10-PCS; 2019-12-16)
PROC: 30233N1 Transfusion of Nonautologous Red Blood Cells into Peripheral Vein, Percutaneous Approach (ICD-10-PCS; 2019-12-18)
DX: I13.2 Hypertensive heart and chronic kidney disease with heart failure and with stage 5 chronic kidney disease, or end stage renal disease (principal); I21.A1 Myocardial infarction type 2; J96.21 Acute and chronic respiratory failure with hypoxia; J18.9 Pneumonia, unspecified organism; N18.6 End stage renal disease; I50.43 Acute on chronic combined systolic (congestive) and diastolic (congestive) heart failure; F02.81 Dementia in other diseases classified elsewhere, unspecified severity, with behavioral disturbance; J98.11 Atelectasis; N39.0 Urinary tract infection, site not specified; E11.22 Type 2 diabetes mellitus with diabetic chronic kidney disease; Z99.2 Dependence on renal dialysis; G31.83 Neurocognitive disorder with Lewy bodies; Y95 Nosocomial condition; E87.6 Hypokalemia; K21.9 Gastro-esophageal reflux disease without esophagitis; E78.5 Hyperlipidemia, unspecified; L98.8 Other specified disorders of the skin and subcutaneous tissue; B96.1 Klebsiella pneumoniae [K. pneumoniae] as the cause of diseases classified elsewhere; E03.9 Hypothyroidism, unspecified; E21.3 Hyperparathyroidism, unspecified; G30.9 Alzheimer's disease, unspecified; I70.0 Atherosclerosis of aorta; J43.9 Emphysema, unspecified; I08.1 Rheumatic disorders of both mitral and tricuspid valves; L29.9 Pruritus, unspecified; D63.8 Anemia in other chronic diseases classified elsewhere; Z79.899 Other long term (current) drug therapy; F32.9 Major depressive disorder, single episode, unspecified; F41.9 Anxiety disorder, unspecified
CPT/HCPCS: 36415; 36600; 70030-TC; 71045; 83550; 83605; 83735; 84100; 84443; 85025; 85730; 86580; 86705; 86706; 86708; 86803; 86850; 86900; 86901; 86920; 87040; 87077; 87086; 87340; 87350; 87400; 90937; 93005; 93307; 94640; 94664; A4663; C1758; G0378; J0692; J0696; J1200; J1940; J2270; J2405; J3370; J3490; J7030; J7050; J7060; P9016-BL; P9021; Q0163